=== PATIENT | female | born 1955 | race Caucasian/White ===

== ENCOUNTER → 2021-01-10 14:54 | Outpatient (CLI) | payer MEDICARE, SELFPAY ==
--- NOTE | 2021-01-10 15:00 | XR_ITS ---
PROCEDURE: XR FOOT LT MIN 3V CLINICAL INDICATION: evaluate for metatarsal fracture Injury with pain laterally COMPARISON: No exams were available for comparison FINDINGS: No fracture or dislocation. No lytic or blastic change. There is normal mineralization. The joint spaces are well-preserved. No significant degenerative/arthritic changes. No erosive changes evident. Other findings:None. IMPRESSION: No acute findings. Dictated by: Skyler Mann MD 01/10/2021 15:31 Skyler Mann MD in [place] 01/10/2021 15:31
== END ==
PROVIDERS: PCP Family Medicine; Visit Provider Family Medicine
DX: M79.672 Pain in left foot (principal)
CPT/HCPCS: 73630

== ENCOUNTER → 2023-01-18 14:27 | Outpatient (CLI) | payer MEDICARE, SELFPAY ==
[2023-01-18 18:25] LABS: Basophils % 0.3 % (0.1-2.0); Eosinophils # 0.2 K/mm3 (0.0-0.4); Eosinophils % 1.7 % (0.1-12.0); Hematocrit 42.1 % (37.0-47.0); Lymphocytes # 2.5 K/mm3 (0.7-4.5); Lymphocytes % 22.2 % (10-50); Mean Corpuscular HGB Conc 33.1 g/dL (31.8-35.4); Mean Corpuscular Hemoglobin 31.1 pg (27.0-31.2); Mean Platelet Volume 8.7 fl (7.4-10.4); Monocytes # 0.6 K/mm3 (0.1-1.0); Monocytes % 4.9 % (1.7-9.3); Neutrophils % 70.9 % (37.0-80.0); Platelet Count 384 K/mm3 (142-424); Red Blood Count 4.48 M/mm3 (4.20-5.40); White Blood Count 11.2 K/mm3 (4.8-10.8)
[2023-01-18 19:16] LABS: Alanine Aminotransferase 21 U/L (12-78); Albumin Level 4.2 g/dl (3.5-5.0); Albumin/Globulin Ratio 1.5 (1.1-1.8); Alkaline Phosphatase 73 U/L (38-126); Anion Gap 12.5 mEq/L (5-15); Aspartate Amino Transferase 24 U/L (14-36); Bilirubin,Total 0.9 mg/dl (0.2-1.3); Blood Urea Nitrogen 14 mg/dl (7-17); Calcium 8.6 mg/dl (8.4-10.2); Carbon Dioxide 29 mmol/L (22.0-30.0); Chloride 104 mmol/L (98-107); Chol/HDL Ratio 5.2 (1-3.5); Cholesterol 257 mg/dl (140-200); Estimated Glomerular Filt Rate 123 ml/min (>60); GFR (African American) 149 ML/MIN (>60); Globulin 2.8 g/dL (1.3-3.2); Glucose 76 mg/dl (74-100); HDL Cholesterol 49 mg/dl (40-60); Potassium 4.5 mmoL/L (3.5-5.1); Sodium 141 mmol/L (136-145); Triglycerides 197 mg/dl (30-150); VLDL Cholesterol 39 mg/dL (0-40)
[2023-01-18 20:15] LABS: Direct LDL Cholesterol 140.83 mg/dL (100-129)
== END ==
PROVIDERS: PCP Family Medicine; Visit Provider Family Medicine
DX: R69 Illness, unspecified (principal); Z00.00 Encounter for general adult medical examination without abnormal findings; I10 Essential (primary) hypertension
CPT/HCPCS: 80053; 80061; 85025

== ENCOUNTER 2024-07-28 11:05 | Outpatient (CLI) | payer MEDICARE, SELFPAY ==
[2024-07-28 18:15] LABS: Basophils # 0.1 K/mm3 (0-0.2); Basophils % 0.9 % (0.1-2.0); Eosinophils # 0.2 K/mm3 (0.0-0.4); Eosinophils % 3.2 % (0.1-12.0); Hematocrit 43.8 % (37.0-47.0); Hemoglobin 14.7 g/dL (12.2-16.2); Lymphocytes # 1.9 K/mm3 (0.7-4.5); Lymphocytes % 27.7 % (10-50); Mean Corpuscular HGB Conc 33.5 g/dL (31.8-35.4); Mean Corpuscular Hemoglobin 32.2 pg (27.0-31.2); Mean Corpuscular Volume 96.1 fl (81-99); Mean Platelet Volume 8.5 fl (7.4-10.4); Monocytes # 0.4 K/mm3 (0.1-1.0); Monocytes % 5.1 % (1.7-9.3); Neutrophils # 4.4 K/mm3 (1.8-7.8); Neutrophils % 63.1 % (37.0-80.0); Platelet Count 304 K/mm3 (142-424); Red Blood Count 4.56 M/mm3 (4.20-5.40); Red Cell Distribution Width 13.1 % (11.5-17.5)
[2024-07-28 19:03] LABS: Alanine Aminotransferase 12 U/L (12-78); Albumin Level 4.3 g/dl (3.5-5.0); Albumin/Globulin Ratio 1.5 (1.1-1.8); Alkaline Phosphatase 71 U/L (38-126); Anion Gap 15.8 mEq/L (5-15); Aspartate Amino Transferase 22 U/L (14-36); Bilirubin,Total 1.4 mg/dl (0.2-1.3); Blood Urea Nitrogen 12 mg/dl (7-17); Carbon Dioxide 30 mmol/L (22.0-30.0); Chloride 99 mmol/L (98-107); Estimated Glomerular Filt Rate 99 ml/min (>60); GFR (African American) 120 ML/MIN (>60); Globulin 2.9 g/dL (1.3-3.2); Glucose 77 mg/dl (74-100); Potassium 4.8 mmoL/L (3.5-5.1); Sodium 140 mmol/L (136-145); Total Protein,Serum 7.2 g/dl (6.3-8.2)
[2024-07-28 19:17] LABS: T4 (Thyroxine) 10.8 ug/dl (5.53-11.0)
[2024-07-28 19:18] LABS: 25-OH Vitamin D, Total 14.5 ng/mL (30-100)
[2024-07-28 19:28] LABS: Hemoglobin A1C 5.3 % (4.0-6.0)
[2024-07-28 19:31] LABS: Thyroid Stimulating Hormone 1.57 uIU/mL (0.465-4.68)
[2024-07-28 19:50] LABS: Vitamin B12 276 pg/mL (239-931)
== END 2024-07-28 23:59 | disposition home or self-care (01) ==
LOC: LAB.DROPOF 07-29 13:07
PROVIDERS: PCP Nurse Practitioner Acute Care; Visit Provider Nurse Practitioner Acute Care
DX: I10 Essential (primary) hypertension (principal); E55.9 Vitamin D deficiency, unspecified; E11.9 Type 2 diabetes mellitus without complications
CPT/HCPCS: 80053; 82306; 82607; 83036; 84436; 84443; 85025

== ENCOUNTER 2025-04-07 14:32 | Outpatient (CLI) | payer MEDICARE, SELFPAY ==
--- OUTSIDE RECORDS SUMMARY | 2019-09-02 11:34 | XMS_ITS | Encounter Summary ---
Author Organization [place] [address] Care Team Providers Care Training And Development Director Name Role Phone Roxana Skinner MD Primary Care Provider [phone] Encounter Details Date Type Department Care Team (Latest Contact Info) Description 09/02/2019 10:34 AM EST Hospital Encounter [facility] Referral Lab 1 [place], [place] [id number] Chris Moore MD [address] [facility] [address] [place] [address] Age-related osteoporosis without current pathological fracture Social [...] 1:12 PM EDT Marichuy Lopez RMA documented in this encounter Plan of [...] osteoporosis documented in this encounter Care Teams Training And Development Director Relationship Specialty Start Date End Date Roxana Skinner MD [address] [place] [address] [place] [address] PCP - General Family Medicine 01/30/19 06/21/22 documented as of this encounter
[2025-04-07 21:31] LABS: Albumin Level 4.4 g/dl (3.5-5.0); Chloride 99 mmol/L (98-107); Potassium 4.8 mmoL/L (3.5-5.1); Sodium 138 mmol/L (136-145)
[2025-04-07 21:34] LABS: Alanine Aminotransferase 12 U/L (12-78); Albumin/Globulin Ratio 1.5 (1.1-1.8); Alkaline Phosphatase 93 U/L (38-126); Anion Gap 12.8 mEq/L (5-15); Aspartate Amino Transferase 20 U/L (14-36); Bilirubin,Total 1.7 mg/dl (0.2-1.3); Blood Urea Nitrogen 14 mg/dl (7-17); Calcium 9.1 mg/dl (8.4-10.2); Carbon Dioxide 31 mmol/L (22.0-30.0); Creatinine,Serum 0.50 mg/dl (0.52-1.04); Estimated Glomerular Filt Rate 123 ml/min (>60); GFR (African American) 148 ML/MIN (>60); Globulin 2.9 g/dL (1.3-3.2); Glucose 93 mg/dl (74-100); Total Protein,Serum 7.3 g/dl (6.3-8.2)
[2025-04-07 22:24] LABS: Hepatitis C Ab Qual. W/ RFX NEGATIVE (Negative)
--- OUTSIDE RECORDS SUMMARY | 2025-04-08 13:00 | XMS_ITS | Clinical Summary ---
Author Organization [employer] [facility] are Address [address] [place] [address] Phone Care Team Providers Care Egg Gatherer Name Role Phone Unavailable Unavailable Conditions or Problems No information available. Medications No information available. Medications Administered No information available. Allergies, Adverse Reactions, Alerts No information available. Results No information available. Plan of Care No information available. Procedures No information available. Vital Signs No information available. Immunizations No information available. Advance Directives No information available.
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
== END 2025-04-07 23:59 | disposition home or self-care (01) ==
LOC: LAB.DROPOF 04-08 12:55
PROVIDERS: PCP Family Medicine; Visit Provider Family Medicine
DX: Z11.59 Encounter for screening for other viral diseases (principal); E78.5 Hyperlipidemia, unspecified; I10 Essential (primary) hypertension
CPT/HCPCS: 80053; 86803; 87389

== ENCOUNTER 2025-04-20 13:36 | Outpatient (CLI) | payer MEDICARE, SELFPAY ==
--- OUTSIDE RECORDS SUMMARY | 2019-09-02 11:34 | XMS_ITS | Encounter Summary ---
Author Organization [place] [address] Care Team Providers Care Jewel Grinder Name Role Phone Roxana Skinner MD Primary Care Provider [phone] Encounter Details Date Type Department Care Team (Latest Contact Info) Description 09/02/2019 10:34 AM EST Hospital Encounter [facility] Referral Lab 1 [place], [place] [id number] Chris Moore MD [address] [facility] [address] [place] [address] Age-related osteoporosis without current pathological fracture Social History Tobacco Use Types Packs/Day Years Used Date Smoking Tobacco: Never Smokeless Tobacco: Never Alcohol Use Standard Drinks/Week Comments No 0 (1 standard drink = 0.6 oz pur e alcohol) PHQ-2 Answer Date Recorded PHQ-2 Score 0 02/19/2019 Sexually Active Control Partners Comments Yes Post-menopausal Male Comments No Sex and Gender Information Value Date Recorded Sex Assigned at Not on file Legal Sex Female 1:37 PM EDT Gender Identity Not on file Sexual Orientation Not on file documented as of this encounter Functional Status * Is the person deaf or does he/she have serious difficulty hearing? Answer Date of Assessment Author No 01/30/2019 1:12 PM EDT Marichuy Lopez RMA * Is the person blind or does he/she have serious difficulty seeing even when wearing glasses? Answer Date of Assessment Author No 01/30/2019 1:12 PM EDT Marichuy Lopez RMA * Does this person have serious difficulty walking or climbing stairs? Answer Date of Assessment Author No 01/30/2019 1:12 PM EDT Marichuy Lopez RMA * Does this person have difficulty dressing or bathing? Answer Date of Assessment Author No 01/30/2019 1:12 PM EDT Marichuy Lopez RMA * Because of a physical, mental or emotional condition, does this person have difficulty doing errands alone such as visiting a doctor's office or shopping? Answer Date of Assessment Author No 01/30/2019 1:12 PM EDT Marichuy Lopez RMA documented as of this encounter Mental Status * Because of a physical, mental or emotional condition, does this person have serious difficulty concentrating, remembering or making decisions? Answer Entry Date Author No 01/30/2019 1:12 PM EDT Marichuy Loepz RMA documented in this encounter Plan of Treatment Scheduled Orders Name Type Priority Associated Diagnoses Orde r Schedule THYROID STIMULATING HORMONE Lab Routine Age-related osteoporosis without current pathological fracture ONCE for 1 Occurrences starting 09/02/2019 until 10/07/2019 COMPREHENSIVE METABOLIC PANEL Lab Routine Age-related osteoporosis without current pathological fracture ONCE for 1 Occurrences starting 09/02/2019 until 10/07/2019 VITAMIN D 25 HYDROXY Lab Routine Age-related osteoporosis without current pathological fracture ONCE for 1 Occurrences starting 09/02/2019 until 10/07/2019 documented as of this encounter Goals Goal Patient Goal Type Associated Problems Recent Progress Patient-Stated? Author Blood Pressure < 140/90 Blood Pressure 136/90(2018 9:54 AM EDT) Marichuy Chew RMA Maintain a healthy diet, exercise regularly and maintain an ideal body weight General Marichuy Chew RMA documented as of this encounter Visit Diagnoses Diagnosis Age-related osteoporosis without current pathological fracture Senile osteoporosis documented in this encounter Care Teams Jewel Grinder Relationship Specialty Start Date End Date Roxana Skinner MD [address] [place] [address] [place] [address] PCP - General Family Medicine 01/30/19 06/21/22 documented as of this encounter
--- OUTSIDE RECORDS SUMMARY | 2025-04-20 13:37 | XMS_ITS | Clinical Summary ---
Author Organization [employer] [facility] are Address [address] [place] [id number] Phone Care Team Providers Care Grader Green Meat Name Role Phone Unavailable Unavailable Conditions or Problems No information available. Medications No information available. Medications Administered No information available. Allergies, Adverse Reactions, Alerts No information available. Results No information available. Plan of Care No information available. Procedures No information available. Vital Signs No information available. Immunizations No information available. Advance Directives No information available.
--- OUTSIDE RECORDS SUMMARY | 2025-04-20 13:38 | XMS_ITS | Clinical Summary ---
Author Organization [facility] Address [address] [facility] [address] [place], [place] [address] Phone Care Team Providers Care Shelter Case Manager Name Role Phone Unavailable Primary Care Provider [...] (06/16/2019): Added automatically from request for surgery [id number] Status post hysteroscopic polypectomy 04/11/2017 06/22/2019 Surgical History Surgery Date Site/Laterality Comments TUBAL LIGATION x 2 DILATION AND CURETTAGE OF UTERUS hysteroscopy CHOLECYSTECTOMY, LAPAROSCOPIC 03/28/2012 Abdomen/N/A LAPAROSCOPIC CHOLECYSTECTOMY ; Surgeon: Colton Jimenez MD; Location: [facility] OR; Service: General HYSTEROSCOPY 04/11/2017 N/A HYSTEROSCOPY, DILATION AND CURETTAGE WITH MYOSURE ; Surgeon: Alcira Oreilly MD; Location: [facility] MAIN OR; Service: Gynecology DENTAL SURGERY Full upper denture, several missing teeth on bottom EYE SURGERY 06/04/2017 Right RIGHT EYE YAG LASER CAPSULOTOMY; Surgeon: Tay Arndt MD; Location: [facility]; Service: Ophthalmology TONSILLECTOMY 09/30/1961 - 09/29/1962 CATARACT REMOVAL 07/22/2017 Left LEFT EYE CATARACT EXTRACTION WITH PHACOEMULSIFICATION AND INTRAOCULAR LENS ; Surgeon: Tay Arndt MD; Location: [facility]; Service: Ophthalmology Medical devices from this [...] Lopez RMA Medical Devices Implanted Type Area Technology Infusion Specialist Device Identifier Shelf Expiration Date Model / Serial / Lot Rt Eye Iol Implant (~2011) Lens Intraocular Preloaded 21.0 Diopter - [id number] Implanted:Qty: 1 on 07/22/2017 by Tay Arndt MD at [facility] Left: Eye [facility]:SURG 01/28/2020 AU00T0.210 / [id number] / Procedures Procedure Name Priority Date/Time [...] 1:34 PM EDT Incomplete-need additional imaging evaluation (NWH-Fowpqpia-3) ~ RECOMMENDATION: Ultrasound of the left breast. [...] PM EDT Indicated problem(s): left breast pain. N64.5-Xxjydhymcv-EAX-10-CM ~ MM MAMMO DIGITAL DIAG CAD BILAT Bilateral CC and MLO view(s) were taken. There are scattered fibroglandular densities. Prior study comparison: Compared with prior studies the most recent being 06/11/18, 12/18/14 No masses are seen. No suspicious calcification or distortion. ~ Procedure Note Kamryn Nelson MD - 03/13/2019 Indicated problem(s): left breast pain. N64.1-Lxvufomllk-CTK-10-CM ~ MM MAMMO DIGITAL DIAG CAD BILAT Bilateral CC and MLO view(s) were taken. There are scattered fibroglandular densities. Prior study comparison: Compared with prior studies the most recentbeing 06/11/18, 12/18/14 No masses are seen. No suspicious calcification or distortion. ~ IMPRESSION: Incomplete-need additional imaging evaluation (OKR-Fzmooeow-8) ~ RECOMMENDATION: Ultrasound of the left breast. [...] MEDICARE [place] PART A AND B MEDICARE [place] PART A AND B * Guarantor: CORPORATE,UNINSURED SCREENINGMAMMO Account Type Relation to Patient Date of Phone Billing Address Corporate Other Attn: [place] [address] ATTN: [facility] [place] [address]
[2025-04-20] MEDS: IOPAMIDOL-370 (76%);100ML BOTTLE 100 ML IV (13:57)
[2025-04-20] MEDS: SODIUM CHLORIDE 0.9% 10ML SYR (RAD ONLY) 10 ML IV (13:57)
--- NOTE | 2025-04-20 14:15 | CT_ITS ---
FINAL REPORT TECHNIQUE: After the administration of IV contrast, axial images through the head was performed by computed tomography. Sagittal coronal reformatted images were obtained and reviewed. This study was performed with techniques to keep radiation doses as low as reasonably achievable, (ALARA). Individualized dose reduction techniques using automated exposure control or adjustment of mA and/or kV according to the patient's size were employed. CLINICAL HISTORY: Memory loss FINDINGS: The ventricles are normal in size. There is no evidence of hemorrhage. No masses are identified. No extra-axial fluid is seen. There is mild sphenoid sinusitis. The remaining paranasal sinuses are clear. There is no acute osseous abnormality. There is no evidence of abnormal contrast-enhancement. IMPRESSION: No evidence of mass or acute intracranial abnormality. Reviewed, Interpreted and Dictated by Maru García MD Transcribed by Reshma Ortiz Authenticated and [facility]
--- NOTE | 2025-04-20 15:45 | MM_ITS ---
PROCEDURE INFORMATION: Exam: MG Bilateral Screening 3D Mammography Exam date and time: 04/20/2025 1:57 PM Age: 69 years old Clinical indication: Screening examination TECHNIQUE: Imaging protocol: Bilateral Screening tomosynthesis and 2D mammography including computer-aided detection (CAD) when performed. COMPARISON: No relevant prior studies available. Baseline FINDINGS: MAMMOGRAPHY: Breast composition: There are scattered areas of fibroglandular density. Mass: None. Architectural distortion: None. Calcifications: No suspicious calcifications. Asymmetric density: None. Skin thickening: None. Axillary adenopathy: None. IMPRESSION: No mammographic evidence of malignancy. Annual screening is recommended unless otherwise clinically indicated. ASSESSMENT: BI-RADS Category 1: Negative.
== END 2025-04-20 23:59 | disposition home or self-care (01) ==
LOC: RAD 13:36
PROVIDERS: PCP Family Medicine; Visit Provider Family Medicine
DX: Z12.31 Encounter for screening mammogram for malignant neoplasm of breast (principal); R92.323 Mammographic fibroglandular density, bilateral breasts; R41.3 Other amnesia
CPT/HCPCS: 70460; 77063; 77067; Q9967